=== PATIENT | male | born 1990 | race Caucasian/White ===

== ENCOUNTER 2017-06-20 07:19 | Emergency (ER) | payer OTHER ==
[~2017-06-20] VITALS: Ht 170.2 cm; Wt 92.0 kg
[~2017-06-20 07:19] MED LIST: AZIT500T3 PO; CLIN-73 PO; IBUP-1542 PO; NO MEDS TAKEN; PRED20TA PO
[2017-06-20 07:23] VITALS: Ht 170.2 cm; Wt 92.0 kg
[2017-06-20] MEDS ORDERED: IBUP-1542 PO (07:39)
[2017-06-20] MEDS ORDERED: PENI500T PO (07:39)
[2017-06-20] MEDS ORDERED: IBUPROFEN 600 MG TAB PO ONE (08:00)
[2017-06-20] MEDS ORDERED: DEXAMETHASONE 10 MG/ML 1 ML INJ PO ONE (08:00)
--- NOTE | 2017-06-20 08:13 | ERD ---
ER Documentation Chief Complaint Chief Complaint SORE THROAT,INFLAMMED TONSILS HPI This is a 26-year-old male that presents to the ER stating he has "inflated" tonsils. Patient states he has had a runny nose and has been feeling rundown for the last 2 weeks, however yesterday he began to have severe throat pain and this morning he woke up with a high fever. Pain is worse whenever he swallows. He denies any difficulty in swallowing, shortness of breath or chest pain. 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 ROS 12 point review of systems was done, all negative except per HPI. Medications Home Meds Active Scripts Ibuprofen* (Motrin*) 600 Mg Tab, 600 MG PO Q6, #30 TAB Prov:SHAKEEL SHARMA 06/20/17 Penicillin V Potassium* (Penicillin V K*) 500 Mg Tab, 500 MG PO BID for 10 Days , TAB Prov:SHAKEEL SHARMA 06/20/17 Prednisone* (Prednisone*) 20 Mg Tab, 40 MG PO DAILY for 4 Days, TAB start 02/23 Prov:ORLANDO PERSAUD MD 02/22/15 Azithromycin* (Zithromax*) 500 Mg Tablet, 500 MG PO DAILY for 5 Days, TAB Prov:OR[place]O PERSAUD MD 02/22/15 Ibuprofen* (Ibuprofen*) 600 Mg Tablet, 600 MG PO Q6, #30 TAB Prov:CARMEN KIRKPATRICK PA-C 02/10/15 Clindamycin Hcl* (Clindamycin Hcl*) 300 Mg Capsule, 450 MG PO TID for 10 Days, CAP Prov:CARMEN KIRKPATRICK PA-C 02/10/15 Reported Medications [No Meds Taken] No Conflict Check 10/05/11 Allergies Allergies: Coded Allergies: No Known Allergy (Unverified , 10/05/11) PMhx/Soc History of Surgery: Yes (NOTREXALL INPLANT. X 4 MONTHS, FOR DRUG TX. ) Anesthesia Reaction: No Hx Neurological Disorder: No Hx Respiratory Disorders: No Hx Cardiac Disorders: No Hx Psychiatric Problems: No Hx Miscellaneous Medical Probl: No Hx Alcohol Use: No Hx Substance Use: No Hx Tobacco Use: Yes ( 1 PACK) Smoking Status: Current every day smoker Physical Exam Vitals Vital Signs Date Time Temp Pulse Resp B/P Pulse Ox O2 Delivery O2 Flow Rate FiO2 06/20/17 07:23 102.0 112 20 122/66 98 Physical Exam GENERAL: The patient is well-developed, well-nourished, in no acute distress. NECK: Cervical spine is non tender with no step off. Supple, no nuchal rigidity HEENT: Atraumatic. Pupils equal, round and reactive to light. Extraocular muscles are grossly intact. Conjunctivae pink, no discharge. Bilateral tympanic membranes are clear with no evidence of erythema, effusion or dulling of the light reflex. Tonsilar erythema with bilateral exudate, no uvular deviation no kissing tonsils. RESPIRATORY: Clear to auscultation bilaterally. There are no rales, wheezes or rhonchi. HEART: Regular rate and rhythm. No murmurs, clicks, rubs or gallops. EXTREMITIES: No clubbing or cyanosis. Full range of motion. Grossly neurovascularly intact. NEUROLOGIC: Alert and oriented. Cranial nerves II through XII are intact. SKIN: There is no rash. The skin is warm and dry. Results 24 hrs Current Medications Medications (Trade) Dose Ordered Sig/Fredy Route PRN Reason Start Time Stop Time Status Last Admin Dose Admin Ibuprofen (Motrin) 600 mg ONCE ONCE PO 06/20/17 08:00 06/20/17 08:01 DC 06/20/17 08:05 Dexamethasone (Decadron) 10 mg ONCE ONCE PO 06/20/17 08:00 06/20/17 08:01 DC 06/20/17 08:05 Procedures/MDM This is a 18-year-old male presents to the ER with sore throat, fever and runny nose. Patient does have strep throat on physical exam. He was given Decadron and ibuprofen in the ER without complications. He will be sent home with penicillin with ibuprofen. Suspicion for retropharyngeal abscess or peritonsillar abscess is low he does not have any uvular deviation, kissing tonsils, stridor or muffled voice. Patient needs to follow-up with his primary care doctor within 1-2 days return to ER sooner if symptoms worsen. My medical decision making was shared with the patient, he understands and agrees with plan. Departure Diagnosis: Primary Impression: Strep throat Condition: Stable Patient Instructions: Pharyngitis, Strep (Presumed) Additional Instructions: Call your primary care doctor TOMORROW for an appointment during the next 1-2 days.See the doctor sooner or return here if your condition worsens before your appointment time. SHAKEEL SHARMA Jun 20, 2017 08:13
== END 2017-06-20 07:52 | disposition home or self-care (01) ==
LOC: FTE 07:19
DX: J02.0 Streptococcal pharyngitis (principal); F17.210 Nicotine dependence, cigarettes, uncomplicated
CPT/HCPCS: J1100; Z7502; Z7610; 99283